=== PATIENT | male | born 1950 | race Hispanic/Latino ===

== ENCOUNTER 2022-04-02 21:09 | Emergency (ER) | payer MEDICARE, BC | END 2022-04-02 23:54 | disposition home or self-care (01) | LOC: CSHERS 21:09 | DX: S62.324A Displaced fracture of shaft of fourth metacarpal bone, right hand, initial encounter for closed fracture (principal); E11.9 Type 2 diabetes mellitus without complications; I10 Essential (primary) hypertension; E78.5 Hyperlipidemia, unspecified; F17.210 Nicotine dependence, cigarettes, uncomplicated; W29.8XXA Contact with other powered hand tools and household machinery, initial encounter; Z79.84 Long term (current) use of oral hypoglycemic drugs ==